=== PATIENT | male | born 1965 | race Two or more races ===

== ENCOUNTER 2018-09-06 12:14 | Emergency (ER) | payer MEDICAID ==
[~2018-09-06] VITALS: Ht 180.3 cm; Wt 83.0 kg
[2018-09-06 12:24] VITALS: Ht 180.3 cm; Wt 83.0 kg
[2018-09-06 15:42] VITALS: BP 183/102
== END 2018-09-06 15:42 | disposition left against medical advice (07) ==
LOC: ED 12:14
DX: Z53.21 Procedure and treatment not carried out due to patient leaving prior to being seen by health care provider (principal)

== ENCOUNTER 2020-01-13 10:46 | Emergency (ER) | payer SELFPAY ==
[~2020-01-13] VITALS: Ht 180.3 cm; Wt 77.6 kg
[2020-01-13 11:20] VITALS: Ht 180.3 cm; Wt 77.6 kg
[2020-01-13 12:07] LABS: BASOPHIL % 0.8 % (0-2); PLATELET COUNT 240 x10^3mcL (130-400); RED CELL DISTRIBUTION WIDTH 13.1 % (11.5-14.5)
[2020-01-13 12:23] LABS: CARBON DIOXIDE 29.1 mmol/L (21-32); CHLORIDE SERUM 99 mmol/L (98-107); CREATININE SERUM 0.9 mg/dL (0.7-1.3); GFR1 > 60 mL/min; GLUCOSE SERUM 248 mg/dL (74-106); SODIUM SERUM 136 mmol/L (136-145)
[2020-01-13 12:28] LABS: ALBUMIN 3.9 g/dL (3.4-5.0); ALKALINE PHOSPHATASE 106 U/L (46-116); ALT/SGPT 32 U/L (16-63); AST/SGOT 23 U/L (15-37); BILIRUBIN TOTAL 0.37 mg/dL (0.20-1.00); C REACTIVE PROTEIN 0.8 mg/dL (<=0.9); TOTAL PROTEIN, SERUM 7.7 g/dL (6.4-8.2)
[2020-01-13 13:27] LABS: ERYTHROCYTE SED RATE 17 mm/hr (0-20)
[2020-01-13 14:20] VITALS: BP 148/95
== END 2020-01-13 14:20 | disposition home or self-care (01) ==
LOC: ED 10:46
PROVIDERS: Specialist
DX: L03.031 Cellulitis of right toe (principal); I10 Essential (primary) hypertension; E11.9 Type 2 diabetes mellitus without complications
CPT/HCPCS: 36415; 82962; J2001